=== PATIENT | male | born 1975 | race Caucasian/White ===

== ENCOUNTER 2016-04-28 15:54 | Emergency (ER) | payer OTHER ==
[~2016-04-28] VITALS: Ht 177.8 cm; Wt 115.9 kg
[~2016-04-28 15:54] MED LIST: HYDR-4003 PO; IBUP800T28 PO
[2016-04-28 16:03] VITALS: BP 156/111; PULSE 97; RESP 18; O2SAT 98
[2016-04-28] MEDS ORDERED: _HYDROcodone/APAP 5-325 mg Tablet PO PRN (20:30)
[2016-04-28] MEDS ORDERED: _Ondansetron ODT 4 mg Tablet PO PRN (20:30)
[2016-04-28] MEDS ORDERED: _oxyCODONE/APAP 5-325 mg Tablet PO PRN (20:40)
--- NOTE | 2016-04-28 21:07 | ED.REPORT ---
HPI-GI Bleed Date of Service Apr 28, 2016 ED Provider: Lg Bond DO Nursing Notes Stated Complaint: RECTAL BLEEDING Chief Complaint: General Complaint Nursing Notes Reviewed: Yes Allergies: Coded Allergies: codeine (Verified Adverse Reaction, Intermediate, gi upset, 08/27/15) Scheduled PRN Hydrocodone-Acetaminophen 5-325 mg (Hydrocodone-Acetaminophen 5-325 mg) 1 Each Tablet 1 TABLET PO HS PRN PRN For Pain Hydrocodone-Acetaminophen 5-325 mg (Hydrocodone-Acetaminophen 5-325 mg) 1 Each Tablet 1-2 TABLET PO Q4H PRN PRN For Pain Hydrocortisone (Anusol-Hc) 30 Gm Cream..g. 30 GM RC Q6H PRN PRN For Pain Ibuprofen (Ibuprofen) 800 Mg Tablet 800 MG PO TID PRN PRN For Pain General Time Seen by Provider: 19:10 Chief Complaint Chief Complaint: Hemorrhoid Bleeding Severity: Minimal, Unable to quantify (small amount) Hx Obtained From: Patient Arrived By: Walk-in Onset Occurred: 4 days ago Context of Onset: Bleeding after BM, Pain on BM Symptom Duration: Intermittent Progression Since Onset: Gradually worsening Location: : Rectum Quality: Burning, Stabbing Radiation: : Does not radiate Severity: Current: Moderate Severity: Maximum: Moderate Immunizations: All up to date (no flu this year) Recent Healthcare: No recent hospitalization, Previous diagnosis Similar Sx Previous: Yes Risk-GI Bleed Bleeding Risk Stratification Bleeding Risk: No Anticoagulants, No Bleeding diathesis, No Coagulopathy, No Malignancy Past Medical History Past Medical History Cholelithiasis Choledokolithiasis Past Surgical History ERCP without cholecystectomy Reports: Tonsillectomy Smoking History Former Smoker Social History chews tobacco times 10 years Alcohol Use: "Social" Drug Use: Denies drug use Other Social History: Occupation lives with Ambulatory Status Independent Review of Systems Basic Review of Systems Eyes: Vision NL, No discharge : No dysuria, No frequency Musculoskeletal: No extremity swelling, No extremity pain, Full range of motion , Joints NL Endocrine: No cold intolerance, No heat intolerance, No weight gain, No weight loss Allergy / Immune: No allergy Psychiatric: Normal thought content Constitutional: Denies: Chills, Fever Respiratory: Denies: Dyspnea on exertion Cardiovascular: Denies: Chest pain, Dyspnea on exertion, Palpitations GI: Denies: Abdominal pain, Bloody/tarry stool, Constipation, Diarrhea, Hematemesis, Melena, Nausea, Vomiting Hematologic: Reports Bleeding Skin: Denies Diaphoresis, Denies Unexplained bruises Neurologic: Denies: Change LOC, Confusion, Dizziness, Lightheaded Complete sys rev & neg: except as marked. Physical Exam Initial Vital Signs Vital Signs (First) Date Time Temp Pulse Resp B/P Pulse Ox O2 Delivery O2 Flow Rate FiO2 04/28/16 16:03 36.3 97 18 156/111 98 Room Air Initial VS: Reviewed Head / Eyes: Atraumatic, Normocephalic, PERRL ENT: Mucous membranes moist, Conjunctiva normal, No scleral icterus Neck: Supple, Non-tender, Full range of motion Back: No CVA tenderness Lymphatic: No lymphadenopathy Extremities: Vascular intact, Neuro intact, No swelling, No tenderness Skin: Warm, Dry, No cyanosis Neurologic: Alert, Oriented, Nonfocal Psychiatric: Mood/affect normal, Behavior normal, Normal thought content General/Constitutional: Awake, Alert, No acute distress Respiratory / Chest: Breath sounds NL, Breath sounds = bilat, No respiratory distress, No rales, No rhonchi, No wheezing Cardiovascular: Heart rate NL, Regular rhythm, Heart sounds NL, No murmurs, Cap refill not delayed, Peripheral circulation NL Abdomen: Soft, Non-tender, No guarding, No rebound, BS normoactive, No distention Rectum / Perineum: No discharge, No fissures, No saddle anesthesia Rectum / Perineum Abnl: Positive: Hemorrhoid bleeding, Hemorrhoid external, Hemorrhoid inflamed, Hemorrhoid tender, Hemorrhoid thrombosed, Negative: Rectal prolapse present Procedures external hemorrhoid Thrombectomy Patient signed consent was obtained. Patient was placed on supine with his knees folded to his abdomen. The anus was cleaned with sterile saline and then Chloriprep swabs. 6CC of 2% lidocaine was instilled into the thrombus and surrounding subcutaneous tissue. The thrombus was then excised with a 11blade scalpel with 4 cuts and the thombus was manipulated against suction, observing for deep structures. No nerve or arterial involvement was noted. The hemorrhoid was then tamponaded for approximately 340seconds and the bleeding was noted to be a minimal. Re-Eval/Medical Decision Med Decision/Clinical Course 40yoM with history of gallstones and external hemorrhoids presents with 4 days of worsening rectal pain and mild bleeding. On physical exam the patient has a thrombosed hemorrhoid and had an uncomplicated thrombectomy preformed in the ED. He sill be given cream and pain medication and told to follow up with his PCP in 1-2 weeks where he may have a refferal to surgery for evaluation. Discharge & Departure Impression: Primary Impression: External hemorrhoid, thrombosed Additional Impression: Surgical procedure, elective Ruled Out: Colonic hemorrhage Disposition: Home Discharge Condition All VS Reviewed: Yes Condition: Stable Patient Instructions: Hemorrhoidectomy (ED), Hemorrhoids (ED) Additional Instructions: During you visit to [facility] Emergency Department we preformed a physical exam and noted an external thrombosed hemorrhoid. We obtained your consent and performed a hemorrhoid thrombectomy without complication. Your vital signs were stable and safe for discharge. We will send you home with prescriptions for - [place] Pain medications - Zofran Nausea medications - Anusol HC steroid cream When filling the above prescriptions you should also obtain the following over the counter medication: - SITZ bath salts - Stool softener Miralax or the generic is recommended When taking [place] pain medications DO NOT drive, DO NOT drink alcohol, DO NOT take extra acetaminophen (Tylenol). Try and keep the area clean. The pain medication can be constipating which can aggravate pain at your hemorrhoid site, please use a stool softener of your choosing while taking the [place] pain medication. Miralax or the generic form polyethylene glycol is recommended, please take as directed. Continue to use the steroid cream up to 4 times daily as directed. You should also continue Sitz baths in mild warm water up to 4 times daily to help with pain. Do not hesitate to call emergency services or your primary care physician if you experience any of the following. - High unrelenting fevers. - worsening rectal pain after several days - Uncontrolled vomiting. - Severe hypotension. - dizziness or loss of consciousness. - Chest pain or severe shortness of breath. Please call your PCP tomorrow and schedule an ED Follow up with your primary care physician in 1-2 weeks time following your emergency department visit for surgical site evaluation, medication checks, and general well-being. Referrals: KLAUDIA NUÑEZ MD (PCP) Attending Statement I personally took a history and performed an examination. I performed the hemorrhoidal excision. The area was prepped with Betadine. A wheeled lidocaine was raised over the thrombosed hemorrhoid. The hemorrhoid was opened up with an elliptical incision. The clot was removed. We are very careful to avoid the anus. No complications. Almost immediate relief of pain. Refer to surgery for definitive care. Anusol HC and short course of opiates provided for pain. copies to: KLAUDIA NUÑEZ MD, Nicholas K DO Apr 28, 2016 20:26 Lg Bond DO Apr 29, 2016 19:23
[2016-04-28] MEDS ORDERED: HYDR-4003 PO (21:12)
[2016-04-28] MEDS ORDERED: HYDR30CR76 RC (21:12)
[2016-04-28 21:53] VITALS: BP 162/108; PULSE 66; RESP 16; O2SAT 95
== END 2016-04-28 21:58 | disposition home or self-care (01) ==
LOC: SED 15:54
DX: K64.5 Perianal venous thrombosis (principal); Z87.891 Personal history of nicotine dependence; Z88.5 Allergy status to narcotic agent